=== PATIENT | male | born 1980 | race Asian ===

== ENCOUNTER → 2020-08-30 | Outpatient (CLI) | payer OTHER ==
[~2020-08-30] MED LIST: RISP1TAB48 PO; SERT50TA12 PO
[2020-08-31 02:11] LABS: RUBEOLA (MEASLES) IGG 29.8 AU/mL (Immune >16.4)
== END | disposition home or self-care (01) ==
LOC: LABPV 10:11
PROVIDERS: ATTEND Internal Medicine
DX: Z02.1 Encounter for pre-employment examination (principal)
CPT/HCPCS: 86706; 86735; 86762; 86765; 86787

== ENCOUNTER 2022-04-23 09:37 | Inpatient (IN) | payer MEDICAID, SELFPAY ==
[~2022-04-23] VITALS: Ht 165.1 cm; Wt 64.4 kg
[~2022-04-23 09:37] MED LIST changes: +SERT-158 PO; -SERT50TA12 PO
[2022-04-23 10:41] LABS: BASOPHILS % (AUTO) 0.7 % (0.0-2.0); HEMOGLOBIN 16.8 g/dL (13.5-17.5); LYMPHOCYTES # (AUTO) 2.5 K/uL (1.0-4.8); LYMPHOCYTES % (AUTO) 23.6 % (22.0-44.0); MEAN CORPUSCULAR HGB CONC 34.2 G/dL (31.0-37.0); MEAN CORPUSCULAR VOLUME 85 fL (80-100); MONOCYTES # (AUTO) 0.6 K/uL (0.1-1.0); MONOCYTES % (AUTO) 5.8 % (2.0-9.0); NEUTROPHILS # (AUTO) 7.3 K/uL (1.8-7.7); NEUTROPHILS % (AUTO) 68.9 % (40.0-70.0); PLATELET COUNT (AUTO) 313 K/uL (150-450); RED BLOOD CELL COUNT(AUTO) 5.78 MIL/uL (4.50-5.90); RED CELL DISTRIBUTION WIDTH 13.4 % (11.5-14.5)
[2022-04-23 10:46] LABS: COVID AG,FIA SOURCE NASAL SWAB
[2022-04-23 10:47] LABS: ANION GAP 9 mmol/L (8-16); CALCIUM, TOTAL 9.1 mg/dL (8.8-10.5); CARBON DIOXIDE 26 mmol/L (22-29); CHLORIDE 103 mmol/L (98-107); CREATININE 0.95 mg/dL (0.60-1.30); GLUCOSE,RANDOM 129 mg/dL (70-110); POTASSIUM 3.6 mmol/L (3.5-5.1); SODIUM SERUM 138 mmol/L (136-145); UREA NITROGEN, BLOOD 10 mg/dL (7-18)
[2022-04-23 10:50] LABS: GLOMERULAR FILTR. RATE CALC > 60 mL/min (>60)
[2022-04-23 10:52] LABS: ALANINE AMINOTRANSFERASE 115 U/L (12-78); ALBUMIN 3.9 g/dL (3.4-5.0); ALKALINE PHOSPHATASE 87 U/L (46-116); ASPARTATE AMINOTRANSFERASE 37 U/L (15-37); BILIRUBIN,TOTAL 0.4 mg/dL (0.1-1.0); TOTAL PROTEIN, SERUM 7.8 g/dL (6.4-8.2)
[2022-04-23] MEDS ORDERED: DIAZEPAM 5 MG/ML 2 ML SYRINGE IM ONE (11:00)
[2022-04-23] MEDS ORDERED: HALOPERIDOL LACTATE 5 MG/ML VIAL IM ONE (11:00)
[2022-04-23] MEDS ORDERED: DiphenhydrAMINE HCL 50 MG/ML VIAL IM ONE (11:00)
[2022-04-23] MEDS ORDERED: HALOPERIDOL 5 MG TABLET PO PRN (11:45)
[2022-04-23] MEDS ORDERED: ZOLPIDEM TARTRATE 10 MG TABLET PO PRN (11:45)
[2022-04-23] MEDS ORDERED: LORazepam 2 MG TABLET PO PRN (11:45)
[2022-04-23 15:50] LABS: APPEARANCE,URINE CLEAR (CLEAR); BILIRUBIN,URINE NEGATIVE (NEGATIVE); GLUCOSE, URINE (UA) NEGATIVE (NEGATIVE); KETONES,URINE NEGATIVE (NEGATIVE); LEUKOCYTE ESTERASE ,URINE NEGATIVE (NEGATIVE); NITRATE,URINE NEGATIVE (NEGATIVE); OCCULT BLOOD,URINE NEGATIVE (NEGATIVE); PROTEIN,URINE TRACE mg/dL (NEGATIVE); SPECIFIC GRAVITIY, URINE 1.026 (1.003-1.030); UROBILINOGEN,URINE <=1.0 mg/dL (<=1.0)
[2022-04-23 15:56] LABS: AMPHET/METH SCREEN,URINE NEGATIVE (NEGATIVE); BARBITURATE SCREEN, URINE NEGATIVE (NEGATIVE); BENZODIAZEPINES SCREEN,URINE NEGATIVE (NEGATIVE); CANNABINOID SCREEN,URINE NEGATIVE (NEGATIVE); COCAINE SCREEN,URINE NEGATIVE (NEGATIVE); METHADONE SCREEN, URINE NEGATIVE (NEGATIVE); OPIATE SCREEN,URINE NEGATIVE (NEGATIVE); PHENCYCLIDINE SCREEN,URINE NEGATIVE (NEGATIVE)
[2022-04-24 12:46] VITALS: BP 139/87
[2022-04-24 16:15] VITALS: BP 126/75
[2022-04-25] MEDS ORDERED: ONDANSETRON HCL 4 MG TABLET PO PRN (06:15)
[2022-04-25] MEDS ORDERED: GuaiFENesin/D-METHORPHAN [SUGAR-FREE] 200-20MG/10 ML SYRUP UDCUP PO PRN (06:15)
[2022-04-25] MEDS ORDERED: CloNIDine HCL 0.1 MG TABLET PO PRN (06:15)
[2022-04-25] MEDS ORDERED: DOCUSATE SODIUM 100 MG CAPSULE PO PRN (06:15)
[2022-04-25] MEDS ORDERED: NICOTINE 14 MG/24 HOUR PATCH TD PRN (06:15)
[2022-04-25] MEDS ORDERED: PETROLATUM,WHITE 28 GM JELLY TP PRN (06:15)
[2022-04-25] MEDS ORDERED: ALBUTEROL SULFATE HFA 90 MCG/PUFF 8 GM INHALER IH PRN (06:15)
[2022-04-25] MEDS ORDERED: LOPERAMIDE HCL 2 MG CAPSULE PO PRN (06:15)
[2022-04-25] MEDS ORDERED: MAGNESIUM HYDROXIDE SUSPENSION 30 ML UDCUP PO PRN (06:15)
[2022-04-25] MEDS ORDERED: IBUPROFEN 400 MG TABLET PO PRN (06:15)
[2022-04-25] MEDS ORDERED: MAG HYDROX/AL HYDROX/SIMETH ES 30 ML SUSPENSION UDCUP PO PRN (06:15)
[2022-04-25] MEDS ORDERED: ACETAMINOPHEN 325 MG TABLET PO PRN (06:15)
[2022-04-25 08:00] VITALS: BP 113/75
[2022-04-25 16:13] VITALS: BP 161/98
[2022-04-25] MEDS: RisperiDONE 1 MG TABLET PO SCH (16:50)
[2022-04-26 05:00] VITALS: BP 119/77
[2022-04-26 08:00] VITALS: BP 130/85
[2022-04-26] MEDS: RisperiDONE 1 MG TABLET PO SCH ×2 (08:17→16:31)
[2022-04-26 16:21] VITALS: BP 133/88
[2022-04-27] MEDS: RisperiDONE 1 MG TABLET PO SCH ×2 (08:36→16:14)
[2022-04-27 09:30] VITALS: BP 131/72
[2022-04-28 08:00] VITALS: BP 131/79
[2022-04-28] MEDS: RisperiDONE 1 MG TABLET PO SCH ×2 (08:51→16:20)
[2022-04-28 16:08] VITALS: BP 139/91
[2022-04-29] MEDS: RisperiDONE 1 MG TABLET PO SCH ×2 (08:55→16:54)
[2022-04-29 10:13] VITALS: BP 109/69
[2022-04-29 10:15] VITALS: BP 109/69
[2022-04-29 14:52] LABS: COVID AG,FIA SOURCE NASAL SWAB
[2022-04-29 17:02] VITALS: BP 115/82
[2022-04-30] MEDS: RisperiDONE 1 MG TABLET PO SCH ×2 (08:09→17:07)
[2022-04-30 08:52] VITALS: BP 109/63
[2022-04-30 16:28] VITALS: BP 123/71
[2022-05-01 08:00] VITALS: BP 113/62
[2022-05-01] MEDS: RisperiDONE 1 MG TABLET PO SCH ×2 (08:30→16:26)
[2022-05-01 16:52] VITALS: BP 114/79
[2022-05-02] MEDS: RisperiDONE 1 MG TABLET PO SCH ×2 (08:49→16:38)
[2022-05-02 10:44] VITALS: BP 131/78
[2022-05-03 08:04] VITALS: BP 111/78
[2022-05-03] MEDS: RisperiDONE 1 MG TABLET PO SCH ×2 (09:33→16:37)
[2022-05-03 16:21] VITALS: BP 120/77
[2022-05-04 08:00] VITALS: BP 124/84
[2022-05-04] MEDS: RisperiDONE 1 MG TABLET PO SCH ×2 (09:36→16:34)
[2022-05-04 16:16] VITALS: BP 116/76
[2022-05-05 08:06] VITALS: BP 125/79
[2022-05-05] MEDS: RisperiDONE 1 MG TABLET PO SCH ×2 (08:39→16:21)
[2022-05-05 20:30] VITALS: BP 112/72
[2022-05-06 07:21] LABS: COVID AG,FIA SOURCE NASAL SWAB
[2022-05-06 08:00] VITALS: BP 123/83
[2022-05-06] MEDS: RisperiDONE 1 MG TABLET PO SCH ×2 (10:02→16:21)
[2022-05-06 16:10] VITALS: BP 110/75
[2022-05-07 08:00] VITALS: BP 135/81
[2022-05-07] MEDS: RisperiDONE 1 MG TABLET PO SCH ×2 (08:32→16:45)
[2022-05-07 16:00] VITALS: BP 109/71
[2022-05-08 08:15] VITALS: BP 110/75
[2022-05-08] MEDS: RisperiDONE 1 MG TABLET PO SCH ×2 (08:20→16:40)
[2022-05-08 16:23] VITALS: BP 116/73
[2022-05-09 09:07] VITALS: BP 123/78
[2022-05-09] MEDS: RisperiDONE 1 MG TABLET PO SCH ×2 (09:37→16:08)
[2022-05-09 16:38] VITALS: BP 112/75
[2022-05-10 08:06] VITALS: BP 131/90
[2022-05-10] MEDS: RisperiDONE 1 MG TABLET PO SCH ×2 (09:53→15:57)
[2022-05-10 16:30] VITALS: BP 134/90
[2022-05-11 08:47] VITALS: BP 139/90
[2022-05-11] MEDS: RisperiDONE 1 MG TABLET PO SCH ×2 (09:05→16:01)
[2022-05-11 16:26] VITALS: BP 128/81
[2022-05-12 08:00] VITALS: BP 115/76
[2022-05-12] MEDS ORDERED: RISP1TAB98 PO (09:47)
[2022-05-12] MEDS: RisperiDONE 1 MG TABLET PO SCH (09:47)
== END 2022-05-12 14:40 | disposition home or self-care (01) | DRG 750 ==
LOC: EMS 09:37 → 3EI 04-24 10:32
PROVIDERS: ADMIT Psychiatry & Neurology Child & Adolescent Psychiatry; ATTEND Psychiatry & Neurology Child & Adolescent Psychiatry
DX: F20.0 Paranoid schizophrenia (principal); A53.0 Latent syphilis, unspecified as early or late; Z20.822 Contact with and (suspected) exposure to COVID-19; F31.9 Bipolar disorder, unspecified; F41.9 Anxiety disorder, unspecified; F99 Mental disorder, not otherwise specified; R73.9 Hyperglycemia, unspecified; Z59.9 Problem related to housing and economic circumstances, unspecified
CPT/HCPCS: 80053; 81003; 83036; 85025; 99285; G0480; J1200; J1630

== ENCOUNTER 2023-06-20 01:00 | Inpatient (IN) | payer MEDICAID ==
[~2023-06-20] VITALS: Ht 165.1 cm; Wt 61.7 kg
[~2023-06-20 01:00] MED LIST changes: -RISP1TAB48 PO; +RISP1TAB98 PO; -SERT-158 PO
[2023-06-20] MEDS ORDERED: ZOLPIDEM TARTRATE 10 MG TABLET PO PRN (02:15)
[2023-06-20] MEDS ORDERED: HALOPERIDOL 5 MG TABLET PO PRN (02:15)
[2023-06-20] MEDS ORDERED: LORazepam 2 MG TABLET PO PRN (02:15)
[2023-06-20] MEDS ORDERED: DiphenhydrAMINE HCL 50 MG/ML VIAL IM ONE (03:45)
[2023-06-20] MEDS ORDERED: LORazepam 2 MG/ML VIAL IM ONE (03:45)
[2023-06-20] MEDS ORDERED: HALOPERIDOL LACTATE 5 MG/ML VIAL IM ONE (03:45)
[2023-06-20 06:08] LABS: COVID AG,FIA SOURCE NASAL SWAB
[2023-06-20 06:32] LABS: SARS-COV2 (COVID) ANTIGEN,FIA Negative (Negative)
[2023-06-20 13:42] VITALS: BP 118/71; PULSE 69; RESP 18; TEMP 97.8; O2SAT 100
[2023-06-20 15:32] VITALS: BP 136/96; PULSE 99; RESP 18; TEMP 97.5; O2SAT 98
[2023-06-20 16:01] VITALS: RESP 16
[2023-06-20 22:09] VITALS: BP 139/75; PULSE 81; RESP 18; TEMP 97.7; O2SAT 99
[2023-06-21 08:20] LABS: HEMOGLOBIN 15.4 g/dL (13.5-17.5); LYMPHOCYTES # (AUTO) 2.1 K/uL (1.0-4.8); LYMPHOCYTES % (AUTO) 28.9 % (22.0-44.0); MEAN CORPUSCULAR HEMOGLOBIN 29.4 pg (26.0-34.0); MEAN CORPUSCULAR HGB CONC 34.1 G/dL (31.0-37.0); MEAN CORPUSCULAR VOLUME 86 fL (80-100); MONOCYTES # (AUTO) 0.5 K/uL (0.1-1.0); MONOCYTES % (AUTO) 6.5 % (2.0-9.0); NEUTROPHILS # (AUTO) 4.3 K/uL (1.8-7.7); NEUTROPHILS % (AUTO) 58.6 % (40.0-70.0); PLATELET COUNT (AUTO) 282 K/uL (150-450); RED BLOOD CELL COUNT(AUTO) 5.23 MIL/uL (4.50-5.90); RED CELL DISTRIBUTION WIDTH 13.4 % (11.5-14.5); WHITE BLOOD COUNT (AUTO) 7.3 K/uL (4.5-11.0)
[2023-06-21 08:47] LABS: ALANINE AMINOTRANSFERASE 145 U/L (12-78); ALBUMIN 3.2 g/dL (3.4-5.0); ALKALINE PHOSPHATASE 102 U/L (46-116); ANION GAP 9 mmol/L (8-16); ASPARTATE AMINOTRANSFERASE 57 U/L (15-37); BILIRUBIN,TOTAL 0.6 mg/dL (0.1-1.0); CARBON DIOXIDE 27 mmol/L (22-29); CHLORIDE 106 mmol/L (98-107); CHOL/HDL RATIO 4.4 (4.2-7.3); CHOLESTEROL 189 mg/dL (131-200); CREATININE 0.78 mg/dL (0.60-1.30); FREE T4 (FREE THYROXINE) 0.97 ng/dL (0.76-1.46); GLOMERULAR FILTR. RATE CALC > 60 mL/min (>60); GLUCOSE,RANDOM 165 mg/dL (70-110); HDL CHOLESTEROL 43 mg/dL (40-60); LDL CHOL (CALC.) 117 mg/dL (0-130); POTASSIUM 3.9 mmol/L (3.5-5.1); SODIUM SERUM 142 mmol/L (136-145); THYROID STIMULATING HORMONE 0.03 uIU/mL (0.36-3.74); TOTAL PROTEIN, SERUM 6.9 g/dL (6.4-8.2); TRIGLYCERIDES 145 mg/dL (15-150); UREA NITROGEN, BLOOD 12 mg/dL (7-18)
[2023-06-21 09:37] VITALS: BP 126/85; PULSE 78; RESP 18; TEMP 97.3; O2SAT 95
[2023-06-21] MEDS ORDERED: NICOTINE 14 MG/24 HOUR PATCH TD PRN (14:15)
[2023-06-21] MEDS ORDERED: ACETAMINOPHEN 325 MG TABLET PO PRN (14:15)
[2023-06-21] MEDS ORDERED: MAGNESIUM HYDROXIDE SUSPENSION 30 ML UDCUP PO PRN (14:15)
[2023-06-21] MEDS ORDERED: IBUPROFEN 400 MG TABLET PO PRN (14:15)
[2023-06-21] MEDS ORDERED: PETROLATUM,WHITE 28 GM JELLY TP PRN (14:15)
[2023-06-21] MEDS ORDERED: LOPERAMIDE HCL 2 MG CAPSULE PO PRN (14:15)
[2023-06-21] MEDS ORDERED: ALBUTEROL SULFATE HFA 90 MCG/PUFF 8 GM INHALER IH PRN (14:15)
[2023-06-21] MEDS ORDERED: MAG HYDROX/AL HYDROX/SIMETH ES 30 ML SUSPENSION UDCUP PO PRN (14:15)
[2023-06-21] MEDS ORDERED: ONDANSETRON HCL 4 MG TABLET PO PRN (14:15)
[2023-06-21] MEDS ORDERED: GuaiFENesin/D-METHORPHAN [SUGAR-FREE] 200-20MG/10 ML SYRUP UDCUP PO PRN (14:15)
[2023-06-21] MEDS ORDERED: DOCUSATE SODIUM 100 MG CAPSULE PO PRN (14:15)
[2023-06-21] MEDS ORDERED: CloNIDine HCL 0.1 MG TABLET PO PRN (14:15)
[2023-06-21 20:23] VITALS: BP 120/71; PULSE 90; RESP 17; TEMP 97.8; O2SAT 100
[2023-06-22 08:13] LABS: CHOL/HDL RATIO 5.2 (4.2-7.3); THYROID STIMULATING HORMONE 0.02 uIU/mL (0.36-3.74)
[2023-06-22 08:23] LABS: HEMOGLOBIN A1C 5.5 % (3.8-5.6)
[2023-06-22 08:43] VITALS: BP 125/78; PULSE 83; RESP 18; TEMP 97.9; O2SAT 97
[2023-06-22] MEDS: RisperiDONE 1 MG TABLET PO SCH ×2 (10:09→21:16)
[2023-06-22 20:18] VITALS: RESP 18; TEMP 98
[2023-06-23] MEDS: RisperiDONE 1 MG TABLET PO SCH ×2 (08:13→20:37)
[2023-06-23 09:02] VITALS: BP 126/77; PULSE 78; RESP 18; TEMP 97.5; O2SAT 98
[2023-06-23 20:54] VITALS: BP 118/87; PULSE 76; RESP 18; TEMP 97.7; O2SAT 99
[2023-06-24 08:27] VITALS: BP 111/73; PULSE 72; RESP 17; TEMP 98; O2SAT 99
[2023-06-24] MEDS: RisperiDONE 1 MG TABLET PO SCH ×2 (09:26→21:17)
[2023-06-24 20:55] VITALS: BP 113/71; PULSE 62; RESP 18; TEMP 98.2; O2SAT 98
[2023-06-25] MEDS: RisperiDONE 1 MG TABLET PO SCH ×2 (08:24→20:30)
[2023-06-25 08:25] VITALS: BP 113/76; PULSE 68; RESP 17; TEMP 97.7; O2SAT 97
[2023-06-25 20:11] VITALS: BP 104/61; PULSE 66; RESP 18; TEMP 98; O2SAT 97
[2023-06-26] MEDS: RisperiDONE 1 MG TABLET PO SCH ×2 (08:32→20:30)
[2023-06-26 08:38] VITALS: BP 131/73; PULSE 71; RESP 17; TEMP 97.5; O2SAT 97
[2023-06-26 20:31] VITALS: BP 107/79; PULSE 80; RESP 18; TEMP 97.7; O2SAT 98
[2023-06-27] MEDS: RisperiDONE 1 MG TABLET PO SCH ×2 (08:05→20:10)
[2023-06-27 08:31] VITALS: BP 107/65; PULSE 60; RESP 17; TEMP 97.7; O2SAT 99
[2023-06-27 20:11] VITALS: BP 110/62; PULSE 70; RESP 18; TEMP 97.7; O2SAT 97
[2023-06-28 08:27] VITALS: BP 121/70; PULSE 66; RESP 17; TEMP 97.7; O2SAT 99
[2023-06-28] MEDS: RisperiDONE 1 MG TABLET PO SCH ×2 (08:41→20:42)
[2023-06-28 20:20] VITALS: BP 111/62; PULSE 69; RESP 18; TEMP 97.8; O2SAT 97
[2023-06-29] MEDS: RisperiDONE 1 MG TABLET PO SCH ×2 (08:19→21:31)
[2023-06-29 08:41] VITALS: BP 108/70; PULSE 84; RESP 17; TEMP 97.3; O2SAT 99
[2023-06-29 20:09] VITALS: BP 131/79; PULSE 97; RESP 18; TEMP 97.6
[2023-06-30] MEDS: RisperiDONE 1 MG TABLET PO SCH (08:14)
[2023-06-30 10:00] VITALS: BP 119/73; PULSE 81; RESP 18; TEMP 98; O2SAT 97
[2023-06-30] MEDS ORDERED: RISP1TAB98 PO (12:09)
== END 2023-06-30 13:39 | disposition home or self-care (01) | DRG 750 ==
LOC: EMS 01:01 → B3A 11:00
PROVIDERS: ADMIT Psychiatry & Neurology Child & Adolescent Psychiatry; ATTEND Psychiatry & Neurology Child & Adolescent Psychiatry
DX: F25.0 Schizoaffective disorder, bipolar type (principal); R45.851 Suicidal ideations; A53.0 Latent syphilis, unspecified as early or late; F31.9 Bipolar disorder, unspecified; Z20.822 Contact with and (suspected) exposure to COVID-19; F41.9 Anxiety disorder, unspecified; F17.210 Nicotine dependence, cigarettes, uncomplicated; R73.9 Hyperglycemia, unspecified; G47.00 Insomnia, unspecified; E78.5 Hyperlipidemia, unspecified; Z79.899 Other long term (current) drug therapy
CPT/HCPCS: 80053; 80061; 83036; 84439; 84443; 85025; 99291; J1200; J1630; J2060